=== PATIENT | female | born 1995 | race Caucasian/White ===

== ENCOUNTER → 2021-06-07 08:31 | Outpatient (CLI) | payer OTHER, SELFPAY ==
[2021-06-07 08:55] LABS: UR Morphine/Opiate cutoff 300 Negative (Negative); Ur Creatinine Normal (Normal); Ur Specific Gravity Normal (Normal); Urine Amphetamines Negative (Negative); Urine Barbiturates Negative (Negative); Urine Benzodiazepines Negative (Negative); Urine Cocaine Negative (Negative); Urine MDMA Negative (Negative); Urine Methadone Negative (Negative); Urine Methamphetamines Negative (Negative); Urine Oxycodone Negative (Negative); Urine Phencyclidine Negative (Negative); Urine Tetrahydrocannabinol Negative (Negative); Urine Tricyclic Antidepressant Negative (Negative); Urine pH Normal (Normal)
== END ==
PROVIDERS: PCP Family Medicine; Visit Provider Family Medicine Sleep Medicine
DX: G47.10 Hypersomnia, unspecified (principal); G47.19 Other hypersomnia; G47.30 Sleep apnea, unspecified; R53.83 Other fatigue; G47.00 Insomnia, unspecified
CPT/HCPCS: 80305; 95805

== ENCOUNTER → 2021-08-02 10:08 | Outpatient (CLI) | payer OTHER, SELFPAY ==
[2021-08-02 12:36] LABS: Appearance Urine UA CLEAR; Bilirubin Urine UA NEGATIVE (NEGATIVE); Color Urine UA YELLOW; Glucose Urine UA NEGATIVE (Negative); Ketones Urine UA NEGATIVE (NEGATIVE); Leukocyte Esterase Urine UA NEGATIVE (NEGATIVE); Nitrite Urine UA NEGATIVE (Negative); Occult Blood Urine UA TRACE-INTACT (Negative); Protein Urine UA NEGATIVE (Negative); Specific Gravity Urine UA <=1.005 (1.000-1.035); Urobilinogen Urine UA 0.2 E.U./dL (0.2)
[2021-08-02 12:38] LABS: pH Urine UA 7.5 (4.5-8.0)
[2021-08-02 12:42] LABS: RBC Urine 1-5/HPF (0-5/HPF)
[2021-08-02 12:43] LABS: Amorphous Sediment Urine 1+; Bacteria Urine Many (>30); Culture Indicated Urine Cult Not Indicated; Squamous Epithelial Cell Urine 10-30 /HPF (0-5/HPF); WBC Urine 10-30/HPF (0-5/HPF)
[2021-08-02 14:06] LABS: Urine N gonorrhoeae NOT DETECTED
[2021-08-02 14:08] LABS: Urine Chlamydia NOT DETECTED
[2021-08-03 04:11] LABS: HBsAg Screen Negative (Negative); Hepatitis A Antibody IgM Negative (Negative); Hepatitis B Core Antibody IgM Negative (Negative); Hepatitis C Antibody <0.1 s/co ratio (0.0-0.9)
[2021-08-03 10:13] LABS: HIV 1 & 2 Ab/Ag 4th Gen Combo NEGATIVE (NEGATIVE)
== END ==
PROVIDERS: PCP Family Medicine; Referring Provider Family Medicine; Visit Provider Family Medicine
DX: A64 Unspecified sexually transmitted disease (principal)
CPT/HCPCS: 36415; 80074; 81001; 87389; 87491; 87591

== ENCOUNTER → 2021-08-24 08:41 | Outpatient (CLI) | payer OTHER, SELFPAY ==
[2021-08-24 09:52] LABS: Appearance Urine UA CLEAR; Bilirubin Urine UA NEGATIVE (NEGATIVE); Color Urine UA YELLOW; Glucose Urine UA TRACE g/dL (Negative); Ketones Urine UA NEGATIVE (NEGATIVE); Leukocyte Esterase Urine UA TRACE (NEGATIVE); Nitrite Urine UA NEGATIVE (Negative); Occult Blood Urine UA 1+ (Negative); Protein Urine UA TRACE (Negative); Urobilinogen Urine UA 0.2 E.U./dL (0.2)
[2021-08-24 10:16] LABS: pH Urine UA 6.5 (4.5-8.0)
[2021-08-24 10:17] LABS: Bacteria Urine Few (2-10); Mucus Urine 2+ (Negative); RBC Urine 0-1/HPF (0-5/HPF); Squamous Epithelial Cell Urine 5-10 /HPF (0-5/HPF); WBC Urine 0-1/HPF (0-5/HPF)
== END ==
PROVIDERS: PCP Family Medicine; Referring Provider Registered Nurse; Visit Provider Registered Nurse
DX: R35.0 Frequency of micturition (principal); N39.0 Urinary tract infection, site not specified
CPT/HCPCS: 81003; 81015; 87086

== ENCOUNTER → 2021-09-06 13:43 | Outpatient (CLI) | payer OTHER, SELFPAY ==
[2021-09-06 14:22] LABS: Alanine Aminotransferase 25 IU/L (<35); Albumin 4.8 g/dL (3.5-5.0); Albumin Globulin Ratio 1.5 (1.0-2.8); Alkaline Phosphatase 58 U/L (38-126); Aspartate Aminotransferase 30 IU/L (14-36); BUN Creatinine Ratio 8.5 (6-22); Bilirubin Total 0.9 mg/dL (0.2-1.3); Blood Urea Nitrogen 7 mg/dL (7-17); Carbon Dioxide 26 mmol/L (22-32); Chloride 106 mmol/L (98-107); Estimated Glomerular Filt Rate > 60.0 mL/min (>60); Globulin 3.3 g/dL (1.7-4.1); Glucose 90 mg/dL (70-100); HEMOLYSIS < 15 (0-50); Potassium 4.1 mmol/L (3.4-5.1); Sodium 141 mmol/L (137-145); Total Protein 8.1 g/dL (6.3-8.2)
[2021-09-06 15:06] LABS: Appearance Urine UA CLEAR; Bilirubin Urine UA NEGATIVE (NEGATIVE); Color Urine UA YELLOW; Glucose Urine UA NEGATIVE (Negative); Ketones Urine UA NEGATIVE (NEGATIVE); Leukocyte Esterase Urine UA TRACE (NEGATIVE); Nitrite Urine UA NEGATIVE (Negative); Occult Blood Urine UA NEGATIVE (Negative); Protein Urine UA NEGATIVE (Negative); Specific Gravity Urine UA 1.015 (1.000-1.035); Urobilinogen Urine UA 0.2 E.U./dL (0.2)
[2021-09-06 15:14] LABS: Bacteria Urine Moderate (10-30); Culture Indicated Urine Cult Not Indicated; RBC Urine None Seen (0-5/HPF); Squamous Epithelial Cell Urine 5-10 /HPF (0-5/HPF); WBC Urine 1-5/HPF (0-5/HPF)
[2021-09-06 16:47] LABS: Urine N gonorrhoeae NOT DETECTED
[2021-09-06 16:53] LABS: Urine Chlamydia NOT DETECTED
[2021-09-07 06:11] LABS: HBsAg Screen Negative (Negative); Hepatitis A Antibody IgM Negative (Negative); Hepatitis B Core Antibody IgM Negative (Negative); Hepatitis C Antibody <0.1 s/co ratio (0.0-0.9)
[2021-09-07 16:04] LABS: HIV 1 & 2 Ab/Ag 4th Gen Combo NEGATIVE (NEGATIVE)
== END ==
PROVIDERS: Registered Nurse; PCP Family Medicine; Referring Provider Family Medicine; Visit Provider Family Medicine
DX: R81 Glycosuria (principal); A64 Unspecified sexually transmitted disease
CPT/HCPCS: 36415; 80053; 80074; 81001; 87389; 87491; 87591

== ENCOUNTER → 2021-10-02 16:42 | Outpatient (CLI) | payer OTHER, SELFPAY ==
[2021-10-02 18:28] LABS: COVID19 -Nasal RAPID Negative (Negative)
== END ==
PROVIDERS: PCP Family Medicine; Visit Provider Nurse Practitioner Family
DX: Z20.822 Contact with and (suspected) exposure to COVID-19 (principal); R05.9 Cough, unspecified; R06.02 Shortness of breath; R09.89 Other specified symptoms and signs involving the circulatory and respiratory systems; R53.83 Other fatigue
CPT/HCPCS: 87635

== ENCOUNTER → 2022-03-14 17:20 | Outpatient (CLI) | payer SELFPAY ==
[2022-03-14 18:09] LABS: COVID19 -Nasal RAPID Negative (Negative)
== END ==
PROVIDERS: PCP Family Medicine; Visit Provider Physician Assistant
DX: J02.9 Acute pharyngitis, unspecified (principal); Z20.822 Contact with and (suspected) exposure to COVID-19
CPT/HCPCS: 87070; 87635

== ENCOUNTER → 2022-08-02 15:08 | Outpatient (CLI) | payer OTHER, SELFPAY ==
[2022-08-08 13:46] LABS: QuantiFERON Mitogen Value >10.00 IU/mL (.); QuantiFERON Nil Value 0.07 IU/mL (.); QuantiFERON TB Gold Plus Negative (Negative); QuantiFERON TB1 Ag Value 0.09 IU/mL (.); QuantiFERON TB2 Ag Value 0.08 IU/mL (.)
== END ==
PROVIDERS: PCP Family Medicine; Referring Provider Family Medicine; Visit Provider Family Medicine
DX: Z11.1 Encounter for screening for respiratory tuberculosis (principal)
CPT/HCPCS: 36415; 86480

== ENCOUNTER 2022-10-02 14:55 | Emergency (ER) | payer OTHER, SELFPAY ==
[2022-10-02] VITALS (8 sets, daily range): BP systolic 116–130; BP diastolic 67–77; PULSE 80–86; RESP 14–23; TEMP 36.3; O2SAT 95–99; BMI 29.9
--- NOTE | 2022-10-02 15:33 | DI.RAD.S_ITS ---
PROCEDURE: XR CHEST 1V INDICATIONS: chest pain TECHNIQUE: One view of the chest was acquired. COMPARISON: None. FINDINGS: Surgical changes and devices: None. Lungs and pleura: Lungs are clear. No pleural effusions or pneumothorax. Mediastinum: Mediastinal contours appear normal. Heart size is normal. Bones and chest wall: No suspicious bony lesions. Overlying soft tissues appear unremarkable. IMPRESSION: No acute cardiopulmonary abnormality. Dictated by: Cornell Suh M.D. on 10/02/2022 at 14:57 Approved by: Cornell Suh M.D. on 10/02/2022 at 14:57
[2022-10-02 17:24] LABS: Alanine Aminotransferase 37 IU/L (<35); Albumin 4.8 g/dL (3.5-5.0); Albumin Globulin Ratio 1.3 (1.0-2.8); Alkaline Phosphatase 57 U/L (38-126); Aspartate Aminotransferase 37 IU/L (14-36); BUN Creatinine Ratio 10.4 (6-22); Bilirubin Total 0.4 mg/dL (0.2-1.3); Blood Urea Nitrogen 7 mg/dL (7-17); Calcium 9.3 mg/dL (8.4-10.2); Carbon Dioxide 26 mmol/L (22-32); Chloride 105 mmol/L (98-107); Creatine Kinase 145 U/L (30-135); Estimated Glomerular Filt Rate > 60 mL/min (>60); Globulin 3.8 g/dL (1.7-4.1); Glucose 79 mg/dL (70-100); Lipase 67 U/L (23-300); Magnesium 2.1 mg/dL (1.6-2.3); Sodium 142 mmol/L (137-145); Total Protein 8.6 g/dL (6.3-8.2)
[2022-10-02 17:25] LABS: HEMOLYSIS 57 (0-50)
[2022-10-02 17:28] LABS: Add Manual Diff / Slide Review NO; Basophils Absolute Auto 100 /uL (0-100); Basophils Percent Auto 1.3 % (0-2); Eosinophils Absolute Auto 300 /uL (0-450); Eosinophils Percent Auto 2.8 % (2-4); Hematocrit 42.1 % (36-46); Hemoglobin 14.6 g/dL (12.0-16.0); Lymphocytes Absolute Auto 4000 /uL (1100-4500); Lymphocytes Percent Auto 39.6 % (25-40); Mean Corpuscular HGB Conc 34.7 % (30-36); Mean Corpuscular Hemoglobin 28.7 PG (26-34); Mean Corpuscular Volume 82.7 fL (80-100); Monocytes Absolute Auto 500 /uL (0-900); Monocytes Percent Auto 5.2 % (3-14); Neutrophils Absolute Auto 5100 /uL (1500-7000); Neutrophils Percent Auto 51.1 % (50-75); Platelet Count 333 X10^3/uL (150-400); Red Blood Cell Count 5.09 X10^6/uL (4.0-5.2); Red Cell Distribution Width 13.6 % (11.6-14.8); White Blood Cell Count 10.1 X10^3/uL (4.5-11.0)
[2022-10-02 17:36] LABS: Troponin I < 0.012 ng/mL (0.01-0.034)
[2022-10-02 17:39] LABS: CKMB % Relative Index 0.9 % (1.5-5.0)
--- NOTE | 2022-10-02 19:51 | ED.CHESTPAIN ---
HPI - Chest Pain General Chief Complaint: Chest Pain Stated Complaint: CHEST PAIN X FOUR DAYS Time Seen by Provider: 10/02/22 19:33 History of Present Illness HPI narrative: Patient is a healthy 27-year-old female who presents with history anxiety and bipolar presenting today with chest discomfort. She states that she has stopped her Abilify per Dr. brady last week 4 days ago she started having chest discomfort. She says it hurts when she moves and breathes sometimes. She does not really feel any shortness of breath. Thought it may have been anxiety from the Abilify she did try lorazepam over the weekend she said did not really help. Has continued but it really does hurt with movement she does not remember straining or injuring her chest. It is tender upon palpation in her sternal area. She tried taking aspirin at home without any significant. Related Data Home Medications Medication Instructions Recorded Confirmed lamotrigine 100 mg tablet 100 mg PO 02/17/21 03/14/22 lorazepam 0.5 mg tablet 0.5 mg PO PRN panic attack(s) 02/17/21 03/14/22 hydroxyzine HCl 25 mg tablet 50 mg PO BEDTIME PRN panic attacks 04/04/21 03/14/22 aripiprazole 2 mg tablet 2 mg PO DAILY 09/06/22 09/06/22 guanidine 125 mg tablet mg PO 09/06/22 09/06/22 trazodone 300 mg tablet 300 mg PO DAILY 09/06/22 09/06/22 Allergies Allergy/AdvReac Type Severity Reaction Status Date / Time amoxicillin [From Augmentin] Allergy Unknown severe Verified 09/06/22 13:58 n/v/d (childhood) clavulanic acid Allergy Unknown severe Verified 09/06/22 13:58 [From Augmentin] n/v/d (childhood) paroxetine [From Paxil] AdvReac Severe Manic Verified 09/06/22 13:58 Episodes Review of Systems Review of Systems Narrative: GENERAL: Denies chills, fatigue, malaise, fever, sweats, travel HEENT: Denies sinus pain, ear pain, sore throat, difficulty swallowing, neck pain RESPIRATORY: Denies dyspnea, cough, wheezing, hemoptysis, sputum. CARDIOVASCULAR: See HPI GASTROINTESTINAL: Denies nausea, vomiting, abdominal pain, diarrhea, constipation, melena. : Denies dysuria, frequency, incontinence, hematuria, urinary retention, flank pain. MUSCULOSKELETAL: See HPI SKIN: No rash, no erythema, no pruritus NEUROLOGIC: Denies weakness, dizziness, headache, numbness, change in speech, confusion PSYCHIATRIC: No concerning psychosocial issues. 12 point review of systems is negative except for those stated above and HPI Patient History Medical History Anxiety Bipolar disorder Cervical cancer screening Endometriosis Headache History of bipolar disorder Migraines PCOS (polycystic ovarian syndrome) PTSD (post-traumatic stress disorder) Screening for HPV (human papillomavirus) Substance abuse Urinary frequency UTI (urinary tract infection) Surgical History Anesthesia History of hip surgery History of removal of cyst (~09/2020) Family History Father Hypertension Mental health problem MIC (obstructive sleep apnea) Loud snoring Mother Mental health problem Insomnia Brother Mental health problem Grandfather Mental health problem Substance use Grandmother Hypertension Grandfather Cancer Hypertension Mental health problem Grandmother Diabetes mellitus Hypertension Mental health problem Social History Smoking Status: Former smoker Smokeless tobacco user: other (former nicotine vape ) quit status: has quit before alcohol intake: former (Recovering alcohol abuse 2017 ) substance use type: former substance user (Quit 06/08/2020 ), marijuana (former 06/08/2020), sedatives (former 06/08/2020 ) and painkillers (former 06/08/2020) Smoking Status: Former smoker Substance Use Type: does not use Exam Initial Vital Signs Initial Vital Signs: Vital Signs Temperature 97.4 F L 10/02/22 15:28 Pulse Rate 84 10/02/22 15:28 Respiratory Rate 14 10/02/22 15:28 Blood Pressure 127/67 10/02/22 15:28 Pulse Oximetry 99 10/02/22 15:28 Oxygen Delivery Method 10/02/22 15:28 GENERAL: Alert well-appearing 27-year-old female HEENT: Head atraumatic,EOMI, pupils reactive, face symmetric, moist mucous membranes CARDIOVASCULAR: Regular a no murmurs no rubs RESPIRATORY: Breath sounds equal bilaterally, no wheezes rales or rhonchi. Slight tenderness on the sternum reproducible with touch ABDOMEN: Soft, nontender. Normoactive bowel sounds all 4 quadrants. No guarding or rebound. EXTREMITIES: Normal range of motion, no clubbing or edema. Neurovascularly intact NEUROLOGICAL: Alert and oriented x4. SKIN: Warm, dry, no laceration, no petechiae, no rashes or lesions. Scores HEART Score Heart Score history: Slightly Suspicious Heart Score EKG: Normal Heart Score Age: < 45 years old Heart Score risk factors: No known risk factors Heart Score troponin: < or = to normal limit Heart Score Total: 0 PERC Score Age greater than or equal to 50 years: No Heart rate greater than or equal to 100 bpm: No Room Air O2 Sat less than 95%: No Unilateral leg swelling: No Recent trauma or surgery: No Hemoptysis: No Prior PE or DVT: No Hormone Use: No Total PERC Score: 0 Course Orders Ordered: ED Orders 10/02/22 15:33 XR chest 1V Stat 10/02/22 15:40 EKG-12 Lead Stat 10/02/22 16:59 Complete Blood Count AUTO DIFF Stat Comprehensive Metabolic Panel Stat Lipase Stat Magnesium Stat Troponin & CK Cardiac Panel Stat Vital Signs Vital signs: Vital Signs - 8 hr 10/02/22 15:28 10/02/22 18:28 10/02/22 18:30 Temperature 97.4 F L Pulse Rate 84 Respiratory Rate 14 Blood Pressure 127/67 123/71 130/77 Pulse Oximetry 99 Oxygen Delivery Method Room Air 10/02/22 18:39 Temperature Pulse Rate 83 Respiratory Rate 23 Blood Pressure Pulse Oximetry Oxygen Delivery Method MDM - Chest Pain Lab Data Result diagrams: 10/02/22 16:59 10/02/22 16:59 Labs: Lab Results 10/02/22 10/02/22 Range/Units 16:59 16:59 WBC 10.1 (4.5-11.0) X10^3/uL RBC 5.09 (4.0-5.2) X10^6/uL Hgb 14.6 (12.0-16.0) g/dL Hct 42.1 (36-46) % MCV 82.7 (80-100) fL MCH 28.7 (26-34) PG MCHC 34.7 (30-36) % RDW 13.6 (11.6-14.8) % Plt Count 333 (150-400) X10^3/uL Neut % (Auto) 51.1 (50-75) % Lymph % (Auto) 39.6 (25-40) % [place] % (Auto) 5.2 (3-14) % Eos % (Auto) 2.8 (2-4) % Baso % (Auto) 1.3 (0-2) % Neut # (Auto) 5100 (3155-5547) /uL Lymph # (Auto) 4000 (7960-5139) /uL [place] # (Auto) 500 (0-900) /uL Eos # (Auto) 300 (0-450) /uL Baso # (Auto) 100 (0-100) /uL Sodium 142 (137-145) mmol/L Potassium 4.0 (3.4-5.1) mmol/L Chloride 105 (98-107) mmol/L Carbon Dioxide 26 (22-32) mmol/L BUN 7 (7-17) mg/dL Creatinine 0.67 (0.52-1.04) mg/dL Estimated GFR > 60 (>60) mL/min BUN/Creatinine Ratio 10.4 (6-22) Glucose 79 (70-100) mg/dL Calcium 9.3 (8.4-10.2) mg/dL Magnesium 2.1 (1.6-2.3) mg/dL Total Bilirubin 0.4 (0.2-1.3) mg/dL AST 37 H (14-36) IU/L ALT 37 H (<35) IU/L Alkaline Phosphatase 57 (38-126) U/L Total Creatine Kinase 145 H (30-135) U/L CK-MB (CK-2) 1.30 (<2.37) ng/mL CK-MB (CK-2) Rel Index 0.9 L (1.5-5.0) % Troponin I < 0.012 (0.01-0.034) ng/mL Total Protein 8.6 H (6.3-8.2) g/dL Albumin 4.8 (3.5-5.0) g/dL Globulin 3.8 (1.7-4.1) g/dL Albumin/Globulin Ratio 1.3 (1.0-2.8) Lipase 67 (23-300) U/L Point of Care Testing Test Results Negative Urine Dip Bedside Urine Glucose Negative Bedside Urine Bilirubin - Negative Bedside Urine Ketone - Negative Urine Specific [place] 1.025 Bedside Urine Occult Blood - Negative Bedside Urine pH 6.0 Bedside Urine Protein - Negative Bedside Urine Urobilinogen - Negative Bedside Urine Nitrite - Negative Bedside Urine Leukocytes - Negative Esterase Imaging Data Chest x-ray: Radiologist's Impression: FUNMILAYO Varner [id number] XRay Report Signed Patient: Neelam Ortiz MR#: [id number] : 1995 Acct:[id number] Age/Sex: 27 / F Date of Service: 10/02/22 Loc: ED Accession Number: [id number] ?? Procedure: XR chest 1V Ordering Provider: Cordell Chong MD PROCEDURE:? XR CHEST 1V ? INDICATIONS:? chest pain ? TECHNIQUE:? One view of the chest was acquired.? ? COMPARISON:? None. ? FINDINGS:? ? Surgical changes and devices:? None.? ? Lungs and pleura:? Lungs are clear.? No pleural effusions or pneumothorax.? ? Mediastinum:? Mediastinal contours appear normal.? Heart size is normal.? ? Bones and chest wall:? No suspicious bony lesions.? Overlying soft tissues appear unremarkable.? ? IMPRESSION:? No acute cardiopulmonary abnormality. ? ? ? Dictated by: Cornell Suh M.D. on 10/02/2022 at 14:57 ? ? ECG Data Interpretation: Normal sinus rhythm rate 92 MA interval 140 QRS [address] changes no T-wave inversions MDM Narrative Medical decision making narrative: Patient is a healthy 27-year-old female who has had some chest discomfort off and on for couple of days. It is in her sternum reproducible with palpation and movement. At this time work x-ray EKG are overall reassuring. No sign of infection she has not had any fever or chills. She is not significantly short of breath. Low heart score negative PERC score at this time most likely a costochondritis. The possibly withdraw from Abilify although I think unlikely Discharge Plan Departure Patient Disposition: Home Clinical Impression: Costochondritis Instructions: Costochondritis Activity Restrictions/Additional Instructions: *You have been diagnosed with possible costochondritis *What to do: At this time rest. Limit activity. May try ice or heat. Possible withdraw from Abilify *Continue to take medications as directed Ibuprofen 600 mg every 6 hours if needed for [id number] pain *Follow up with your primary care provider in 2-3 days or call [phone] *Return to ER if you should have increased shortness of breath worsening pain or any new, worsening or concerning symptoms Prescriptions: No Action lamotrigine 100 mg tablet 100 mg PO lorazepam 0.5 mg tablet 0.5 mg PO PRN (Reason: panic attack(s)) hydroxyzine HCl 25 mg tablet 50 mg PO BEDTIME PRN (Reason: panic attacks) trazodone 300 mg tablet 300 mg PO DAILY guanidine 125 mg tablet PO aripiprazole 2 mg tablet 2 mg PO DAILY Referrals: Suman Ovalles DO [Primary Care Provider] - Visit Report Forms: Patient Portal/API
== END 2022-10-02 20:18 | disposition home or self-care (01) ==
PROVIDERS: Family Medicine Addiction Medicine; Emergency Provider Emergency Medicine; PCP Family Medicine
DX: M94.0 Chondrocostal junction syndrome [Tietze] (principal)
CPT/HCPCS: 36415; 71045; 80053; 81003; 81025; 82550; 82553; 83690; 83735; 84484; 85025; 93005; 99283; 99284

== ENCOUNTER → 2022-10-04 12:15 | Outpatient (CLI) | payer OTHER, SELFPAY ==
[2022-10-04 13:50] LABS: Influenza A - CEPHEID Flu A NEGATIVE (NEGATIVE); Influenza B - CEPHEID Flu B NEGATIVE (NEGATIVE)
[2022-10-04 13:53] LABS: COVID-19 CEPHEID 4-PLEX PCR Negative (Negative)
[2022-10-04 13:54] LABS: Respiratory Syncytial Virus POSITIVE (Negative)
== END ==
PROVIDERS: PCP Family Medicine; Visit Provider Nurse Practitioner Family
DX: R05.9 Cough, unspecified (principal)
CPT/HCPCS: 0241U; 87070

== ENCOUNTER → 2022-10-10 15:27 | Outpatient (CLI) | payer OTHER, SELFPAY ==
--- NOTE | 2022-10-10 15:29 | DI.RAD.S_ITS ---
PROCEDURE: XR CHEST 2V INDICATIONS: cough TECHNIQUE: 2 views of the chest were acquired. COMPARISON: [facility], CR, XR CHEST 1V, 10/02/2022, 15:50. FINDINGS: Surgical changes and devices: None. Lungs and pleura: Lungs are clear. No pleural effusions or pneumothorax. Mediastinum: Mediastinal contours are normal. Heart size is normal. Bones and chest wall: No suspicious bony abnormalities. Soft tissues appear unremarkable. IMPRESSION: No acute cardiopulmonary process demonstrated radiographically. Dictated by: Viktor Leon M.D. on 10/10/2022 at 15:45 Approved by: Viktor Leon M.D. on 10/10/2022 at 15:48
== END ==
PROVIDERS: PCP Family Medicine; Referring Provider Registered Nurse; Visit Provider Registered Nurse
DX: R05.9 Cough, unspecified (principal)
CPT/HCPCS: 71046

== ENCOUNTER → 2022-12-28 12:32 | Outpatient (CLI) | payer OTHER, SELFPAY ==
[2022-12-28 13:29] LABS: Pregnancy Test Urine Negative (Negative)
== END ==
PROVIDERS: PCP Family Medicine; Visit Provider Student in an Organized Health Care Education/Training Program
DX: N39.0 Urinary tract infection, site not specified (principal); R11.0 Nausea; R30.0 Dysuria
CPT/HCPCS: 81025; 87086